=== PATIENT | female | born 1965 ===

== ENCOUNTER 2018-03-31 15:13 | Emergency (ER) | payer SELFPAY ==
[~2018-03-31] VITALS: Ht 165.1 cm; Wt 70.5 kg
[2018-03-31 15:18] VITALS: Ht 165.1 cm; Wt 70.5 kg
[2018-03-31] MEDS ORDERED: TIROSINT50 MCG (15:19)
[2018-03-31] MEDS ORDERED: UNABLE TO REMEMBER (15:20)
[2018-03-31] MEDS ORDERED: BUPROPION HCL100 MG PO (15:20)
[2018-03-31 16:14] LABS: BASOPHILS 0.1 % (0-2); EOSINOPHILS 3.9 % (0-7); HEMATOCRIT 39.2 % (36.0-48.0); HEMOGLOBIN 13.5 g/dL (12-16); IMMATURE GRANULOCYTES 0.2 % (0-5); LYMPHOCYTES 22.1 % (15-50); MCH 33.1 pg (26.0-34.0); MCHC 34.4 g/dL (31.0-37.0); MCV 96.1 fL (80.0-100.0); MEAN PLATELET VOLUME 9.6 fL (7.4-10.4); MONOCYTES 8.1 % (2-11); NEUTROPHILS 65.6 % (40-80); PLATELET COUNT 271 10x3/uL (130-400); RBC 4.08 10x6/uL (4.00-5.40); RDW 12.8 % (11.5-14.5); WBC 12.2 10x3/uL (4.8-10.8)
[2018-03-31 16:25] LABS: ALBUMIN 3.5 g/dL (3.4-5.0); ALKALINE PHOSPHATASE 57 U/L (46-116); ALT (SGPT) 13 U/L (10-68); BILIRUBIN - TOTAL 0.25 mg/dL (0.2-1.3); CALC OSMOLALITY 273 mosm/kg (275-300); CALCIUM 7.9 mg/dL (8.5-10.1); CARBON DIOXIDE 23.4 mmol/L (21.0-32.0); CHLORIDE - SERUM 104 mmol/L (98-107); CREATININE - SERUM 0.7 mg/dL (0.6-1.3); GLUCOSE 85 mg/dL (74-106); POTASSIUM - SERUM 3.9 mmol/L (3.5-5.1); PROTEIN - SERUM 6.5 g/dL (6.4-8.2); SODIUM 137 mmol/L (136-145); UREA NITROGEN 15 mg/dL (7-18); eGFR NON AFRICAN AMERICAN > 90 mL/min (90-120)
[2018-03-31 16:32] LABS: APPEARANCE CLEAR (CLEAR); BILIRUBIN NEGATIVE (NEGATIVE); COLOR YELLOW (YELLOW); GLUCOSE NEGATIVE (NEGATIVE); KETONE NEGATIVE (NEGATIVE); NITRITE NEGATIVE (NEGATIVE); PROTEIN NEGATIVE (NEGATIVE); SPECIFIC GRAVITY 1.015 (1.005-1.020); UROBILINOGEN NORMAL (NORMAL)
[2018-03-31 16:33] LABS: RED CELLS - URINE 0-5 /hpf (0-5); WHITE CELLS - URINE 0-5 /hpf (0-5)
[2018-03-31 16:35] LABS: BACTERIA MODERATE /hpf (NONE SEEN); EPITHELIAL CELLS 0-5 /hpf (0-5)
[2018-03-31] MEDS ORDERED: TYLENOL W/CODEI1 TAB PO (17:32)
[2018-03-31] MEDS ORDERED: COMPAZINE10 MG PO (17:32)
[2018-03-31 18:30] VITALS: BP 108/73
== END 2018-03-31 18:31 | disposition home or self-care (01) ==
LOC: D.ER 15:13
PROVIDERS: Family Medicine
DX: N23 Unspecified renal colic (principal); R31.9 Hematuria, unspecified; M54.5 Low back pain